=== PATIENT | male | born 1955 | race Asian ===

== ENCOUNTER → 2017-09-04 | Outpatient (CLI) | payer OTHER | END | disposition home or self-care (01) | LOC: SHCH 10:25 | PROVIDERS: ATTEND Internal Medicine Cardiovascular Disease | DX: R00.2 Palpitations (principal) | CPT/HCPCS: 93306 ==

== ENCOUNTER 2018-01-12 22:41 | Observation (INO) | payer OTHER ==
[~2018-01-12] VITALS: Ht 172.7 cm; Wt 74.3 kg
[2018-01-12] MEDS ORDERED: NITROGLYCERIN 1GM/1 INCH PACKET TD ONE (22:49)
[2018-01-12] MEDS ORDERED: ASPIRIN 325 MG TABLET ONE (22:52)
[2018-01-12 23:18] LABS: BASOPHILS % (AUTO) 0.8 % (0.0-5.0); EOSINOPHILS % (AUTO) 5.6 % (0.0-8.0); MEAN CORPUSCULAR HEMOGLOBIN 33.9 pg (27.0-33.0); MEAN CORPUSCULAR HGB CONC 34.8 g/dL (32.0-36.0); MEAN CORPUSCULAR VOLUME 97.5 fL (79-99); MONOCYTES % (AUTO) 9.6 % (3.0-13.0); PLATELET COUNT (AUTO) 207 K/uL (130-400); RED BLOOD CELL COUNT(AUTO) 4.31 MIL/uL (4.50-6.20); WHITE BLOOD COUNT (AUTO) 8.6 K/uL (4.8-10.8)
[2018-01-12 23:29] LABS: CREATININE 0.9 mg/dL (0.5-1.5); POTASSIUM 3.2 mmol/L (3.5-5.1)
[2018-01-12 23:36] LABS: INR 1.01 (0.85-1.15); PARTIAL THROMBOPLASTIN TIME 26.8 SEC (26.3-35.5); PROTHROMBIN TIME 10.6 SEC (9.6-11.6)
[2018-01-12 23:43] LABS: ALBUMIN 3.5 g/dL (3.5-5.0); BILIRUBIN,TOTAL 0.4 mg/dL (0.2-1.0); TOTAL PROTEIN, SERUM 7.1 g/dL (6.0-8.3)
[2018-01-13] MEDS ORDERED: ONDANSETRON HCL MDV 20ML 2 MG/ML VIAL IV PRN (03:30)
[2018-01-13] MEDS ORDERED: MORPHINE SULFATE 2 MG/ML 1ML SYG IV PRN (03:30)
[2018-01-13] MEDS ORDERED: NITROGLYCERIN 1GM/1 INCH PACKET TD SCH ×2 (03:30→07:01)
[2018-01-13] MEDS ORDERED: ACETAMINOPHEN 325 MG TAB PO PRN (03:30)
[2018-01-13 04:00] VITALS: BP 125/78
[2018-01-13] MEDS ORDERED: ACETAMINOPHEN 325 MG TAB ONE (04:50)
[2018-01-13 05:40] LABS: ALBUMIN 3.4 g/dL (3.5-5.0); BILIRUBIN,TOTAL 0.7 mg/dL (0.2-1.0); CREATININE 0.8 mg/dL (0.5-1.5); POTASSIUM 3.5 mmol/L (3.5-5.1); TOTAL PROTEIN, SERUM 6.7 g/dL (6.0-8.3)
[2018-01-13] MEDS ORDERED: METO-408 PO (06:55)
[2018-01-13 07:10] VITALS: BP 127/77
[2018-01-13] MEDS ORDERED: PNEUMOCOCCAL VACCINE POLYVALENT 0.5 ML/VIAL [PPV] IM SCH (07:15)
[2018-01-13] MEDS ORDERED: ASPIRIN 325 MG TABLET PO SCH (09:00)
[2018-01-13] MEDS ORDERED: METOPROLOL TARTRATE 25 MG TAB PO SCH (09:00)
[2018-01-13] MEDS ORDERED: ATORVASTATIN CALCIUM 20 MG TABLET PO SCH (09:00)
[2018-01-13] MEDS ORDERED: FAMOTIDINE/PF 20 MG/2 ML VIAL IV SCH (09:00)
[2018-01-13 11:32] VITALS: BP 122/77
[2018-01-13] MEDS ORDERED: PNEUMOCOCCAL VACCINE POLYVALENT 0.5 ML/VIAL [PPV] IM ONE (12:00)
== END 2018-01-13 12:20 | disposition home or self-care (01) ==
LOC: EDH 22:41 → EDHIP 01-13 03:20 → 2DH 01-13 03:27
PROVIDERS: ADMIT Hospitalist; ATTEND Hospitalist
DX: I25.110 Atherosclerotic heart disease of native coronary artery with unstable angina pectoris (principal); I10 Essential (primary) hypertension; I24.9 Acute ischemic heart disease, unspecified; I48.0 Paroxysmal atrial fibrillation; K21.9 Gastro-esophageal reflux disease without esophagitis; Z79.899 Other long term (current) drug therapy; Z83.3 Family history of diabetes mellitus; Z87.891 Personal history of nicotine dependence; Z23 Encounter for immunization
CPT/HCPCS: 36415 ×2; 71045; 80053 ×2; 82550; 83874; 84484 ×3; 85025; 85610; 85730; 90471; 90732; 93005 ×2; 96374; 96375; 99285; A4600; G0378 ×9; J3490

== ENCOUNTER → 2019-07-22 | Outpatient (CLI) | payer SELFPAY ==
[~2019-07-22] MED LIST: METO-408 PO
== END | disposition home or self-care (01) ==
LOC: RAH 10:07
PROVIDERS: ATTEND Physical Medicine & Rehabilitation
DX: M47.22 Other spondylosis with radiculopathy, cervical region (principal)
CPT/HCPCS: 72141

== ENCOUNTER → 2019-10-02 | Outpatient (CLI) | payer OTHER, SELFPAY | END | disposition home or self-care (01) | LOC: RAH 13:06 | PROVIDERS: ATTEND Physical Medicine & Rehabilitation | DX: M19.012 Primary osteoarthritis, left shoulder (principal); M75.42 Impingement syndrome of left shoulder | CPT/HCPCS: 73221 ==

== ENCOUNTER 2020-08-23 08:40 | Day surgery (SDC) | payer OTHER ==
[~2020-08-23] VITALS: Ht 170.2 cm; Wt 72.1 kg
[2020-08-23 09:46] VITALS: BP 140/97
[2020-08-23] MEDS ORDERED: SODIUM CHLORIDE 0.9% 1000ML 1,000 ML IV ONE (10:01)
[2020-08-23] MEDS ORDERED: PROPOFOL 10 MG/ML 20ML VIAL IV ONE (10:05)
[2020-08-23 10:30] VITALS: BP 130/83
[2020-08-23 10:35] VITALS: BP 110/82
[2020-08-23 10:40] VITALS: BP 108/84
[2020-08-23 10:45] VITALS: BP 114/90
[2020-08-23 10:50] VITALS: BP 116/82
== END 2020-08-23 11:05 | disposition home or self-care (01) ==
LOC: DAH 08:40 → ENDO 08:40
PROVIDERS: ATTEND Internal Medicine Gastroenterology
DX: Z12.11 Encounter for screening for malignant neoplasm of colon (principal); K63.5 Polyp of colon; K57.30 Diverticulosis of large intestine without perforation or abscess without bleeding; K64.8 Other hemorrhoids; R10.13 Epigastric pain; I10 Essential (primary) hypertension; I48.91 Unspecified atrial fibrillation; K21.9 Gastro-esophageal reflux disease without esophagitis; K31.89 Other diseases of stomach and duodenum; Z86.010 Personal history of colon polyps; Z79.899 Other long term (current) drug therapy
CPT/HCPCS: 43239; 45380; 87635; A4215 ×2; A4221; A4222; A4223; A4606; A4620; A4657; A4663; C9803; J2704; J7030

== ENCOUNTER → 2021-05-01 | Outpatient (CLI) | payer OTHER | END | disposition home or self-care (01) | LOC: RAH 13:10 | PROVIDERS: ATTEND Internal Medicine | DX: R22.1 Localized swelling, mass and lump, neck (principal) | CPT/HCPCS: 75571; 76536 ==

== ENCOUNTER 2021-09-16 12:16 | Inpatient (IN) | payer OTHER ==
[~2021-09-16] VITALS: Ht 170.2 cm; Wt 70.1 kg
[2021-09-16 12:30] LABS: BASOPHILS % (AUTO) 0.5 % (0.0-5.0); EOSINOPHILS % (AUTO) 4.8 % (0.0-8.0); HEMATOCRIT 46.8 % (42-54); LYMPHOCYTES % (AUTO) 44.2 % (21.0-51.0); MEAN CORPUSCULAR HEMOGLOBIN 32.5 pg (27.0-33.0); MEAN CORPUSCULAR HGB CONC 34.6 g/dL (32.0-36.0); MEAN CORPUSCULAR VOLUME 93.8 fL (79-99); MONOCYTES % (AUTO) 8.3 % (3.0-13.0); NEUTROPHILS % (AUTO) 41.8 % (40.0-77.0); PLATELET COUNT (AUTO) 222 K/uL (130-400); RED BLOOD CELL COUNT(AUTO) 4.99 MIL/uL (4.50-6.20); RED CELL DISTRIBUTION WIDTH 13.2 % (11.0-15.5); WHITE BLOOD COUNT (AUTO) 10.7 K/uL (4.8-10.8)
[2021-09-16 12:52] LABS: POTASSIUM 3.5 mmol/L (3.5-5.1)
[2021-09-16 12:57] LABS: ALBUMIN 4.1 g/dL (3.5-5.0); BILIRUBIN,TOTAL 0.9 mg/dL (0.2-1.0); TOTAL PROTEIN, SERUM 7.9 g/dL (6.0-8.3)
[2021-09-16] MEDS ORDERED: ASPIRIN 81MG CHEW TAB PO ONE (13:30)
[2021-09-16 14:01] LABS: APPEARANCE,URINE SL CLOUDY (CLEAR); BILIRUBIN,URINE NEGATIVE (NEGATIVE); COLOR,URINE AMBER (YELLOW); GLUCOSE, URINE (UA) NEGATIVE (NEGATIVE); KETONES,URINE NEGATIVE (NEGATIVE); LEUKOCYTE ESTERASE ,URINE NEGATIVE (NEGATIVE); NITRATE,URINE NEGATIVE (NEGATIVE); OCCULT BLOOD,URINE NEGATIVE (NEGATIVE); PROTEIN,URINE NEGATIVE (NEGATIVE); UROBILINOGEN,URINE 0.2 mg/dL (0.2-1.0)
[2021-09-16 14:08] LABS: BACTERIA,URINE None Seen /HPF (None Seen); CALCIUM OXALATE CRYSTALS,UR Many /LPF (None Seen); MUCUS,URINE Many LPF (None Seen); RBC,URINE None Seen /HPF (0-1); SQUAMOUS EPITHELIAL CELL,UR 0-2 /HPF (0-2); WBC,URINE None Seen /HPF (0-1)
[2021-09-16] MEDS ORDERED: ASPIRIN 81MG CHEW TAB ONE (14:52)
[2021-09-16 15:16] LABS: HEMOGLOBIN A1C 6.2 % (4.0-6.0)
[2021-09-16] MEDS ORDERED: LABETALOL 20MG VIAL IV PRN (15:30)
[2021-09-16] MEDS ORDERED: METO25TA3 PO (16:00)
[2021-09-16] MEDS ORDERED: METO50TA9 PO (16:00)
[2021-09-16 18:22] VITALS: BP 155/99
[2021-09-16 19:43] VITALS: BP 134/88
[2021-09-16] MEDS: PROPAFENONE HCL 150 MG TABLET PO SCH (20:22)
[2021-09-16] MEDS: RIVAROXABAN 20 MG TABLET PO SCH (20:23)
[2021-09-16] MEDS: METOPROLOL SUCCINATE 25 MG TAB.SR.24H PO SCH (20:23)
[2021-09-17] VITALS (7 sets, daily range): BP systolic 116–140; BP diastolic 71–97
[2021-09-17] MEDS: PROPAFENONE HCL 150 MG TABLET PO SCH ×3 (03:36→20:21)
[2021-09-17 04:58] LABS: CHOLESTEROL 158 mg/dL (<200); HDL CHOLESTEROL 52 mg/dL (29-71); LDL DIRECT 88 mg/dL (0-99); TRIGLYCERIDES 83 mg/dL (30-200)
[2021-09-17 06:47] LABS: BASOPHILS % (AUTO) 0.8 % (0.0-5.0); EOSINOPHILS % (AUTO) 5.5 % (0.0-8.0); LYMPHOCYTES % (AUTO) 35.1 % (21.0-51.0); MEAN CORPUSCULAR HEMOGLOBIN 32.5 pg (27.0-33.0); MEAN CORPUSCULAR HGB CONC 34.4 g/dL (32.0-36.0); MEAN CORPUSCULAR VOLUME 94.3 fL (79-99); MONOCYTES % (AUTO) 7.9 % (3.0-13.0); NEUTROPHILS % (AUTO) 50.3 % (40.0-77.0); PLATELET COUNT (AUTO) 199 K/uL (130-400); RED BLOOD CELL COUNT(AUTO) 4.56 MIL/uL (4.50-6.20); RED CELL DISTRIBUTION WIDTH 13.3 % (11.0-15.5); WHITE BLOOD COUNT (AUTO) 7.6 K/uL (4.8-10.8)
[2021-09-17 06:49] LABS: CREATININE 0.8 mg/dL (0.5-1.5); POTASSIUM 3.8 mmol/L (3.5-5.1)
[2021-09-17] MEDS: RIVAROXABAN 20 MG TABLET PO SCH (08:47)
[2021-09-17] MEDS: ASPIRIN 81 MG EC TAB PO SCH (08:47)
[2021-09-17] MEDS: METOPROLOL SUCCINATE 50 MG TAB.SR.24H PO SCH ×2 (08:47→10:28)
[2021-09-17] MEDS: METOPROLOL SUCCINATE 25 MG TAB.SR.24H PO SCH (20:21)
[2021-09-18] MEDS: PROPAFENONE HCL 150 MG TABLET PO SCH ×3 (03:38→20:21)
[2021-09-18 03:54] VITALS: BP 130/41
[2021-09-18 04:12] LABS: BASOPHILS % (AUTO) 0.7 % (0.0-5.0); EOSINOPHILS % (AUTO) 5.6 % (0.0-8.0); HEMATOCRIT 43.3 % (42-54); LYMPHOCYTES % (AUTO) 38.7 % (21.0-51.0); MEAN CORPUSCULAR HEMOGLOBIN 32.5 pg (27.0-33.0); MEAN CORPUSCULAR HGB CONC 34.2 g/dL (32.0-36.0); MONOCYTES % (AUTO) 7.9 % (3.0-13.0); NEUTROPHILS % (AUTO) 46.7 % (40.0-77.0); PLATELET COUNT (AUTO) 181 K/uL (130-400); RED BLOOD CELL COUNT(AUTO) 4.56 MIL/uL (4.50-6.20); RED CELL DISTRIBUTION WIDTH 13.2 % (11.0-15.5); WHITE BLOOD COUNT (AUTO) 6.9 K/uL (4.8-10.8)
[2021-09-18 04:31] LABS: CREATININE 0.8 mg/dL (0.5-1.5)
[2021-09-18] MEDS ORDERED: REGADENOSON 0.4 MG/5 ML PF SYG IVP SCH (07:00)
[2021-09-18 08:52] VITALS: BP 142/96
[2021-09-18] MEDS: RIVAROXABAN 20 MG TABLET PO SCH (09:25)
[2021-09-18] MEDS: ASPIRIN 81 MG EC TAB PO SCH (09:25)
[2021-09-18] MEDS: METOPROLOL SUCCINATE 50 MG TAB.SR.24H PO SCH (09:25)
[2021-09-18] MEDS ORDERED: AEC81 PO (11:02)
[2021-09-18] MEDS ORDERED: PROP150T28 PO (11:02)
[2021-09-18] MEDS ORDERED: RIVA20TA PO (11:02)
[2021-09-18 12:22] VITALS: BP 135/83
[2021-09-18 16:30] VITALS: BP 131/80
[2021-09-18 19:10] VITALS: BP 144/99
[2021-09-18] MEDS: METOPROLOL SUCCINATE 25 MG TAB.SR.24H PO SCH (20:21)
[2021-09-18 23:07] VITALS: BP 125/78
[2021-09-19 03:49] VITALS: BP 134/93
[2021-09-19] MEDS: PROPAFENONE HCL 150 MG TABLET PO SCH ×2 (04:00→12:12)
[2021-09-19 08:34] VITALS: BP 137/98
[2021-09-19] MEDS: RIVAROXABAN 20 MG TABLET PO SCH (09:51)
[2021-09-19] MEDS: METOPROLOL SUCCINATE 50 MG TAB.SR.24H PO SCH (09:51)
[2021-09-19] MEDS: ASPIRIN 81 MG EC TAB PO SCH (09:51)
[2021-09-19 11:58] VITALS: BP 148/87
== END 2021-09-19 12:43 | disposition home or self-care (01) | DRG 69 ==
LOC: EDH 12:16 → EDHIP 14:46 → 2DH 17:22
PROVIDERS: ADMIT Internal Medicine; ATTEND Internal Medicine
PROC: 4A02XM4 Measurement of Cardiac Total Activity, External Approach (ICD-10-PCS; principal; 2021-09-18)
PROC: 3E073KZ Introduction of Other Diagnostic Substance into Coronary Artery, Percutaneous Approach (ICD-10-PCS; 2021-09-18)
DX: G45.9 Transient cerebral ischemic attack, unspecified (principal); I21.A1 Myocardial infarction type 2; I48.0 Paroxysmal atrial fibrillation; I10 Essential (primary) hypertension; Z87.891 Personal history of nicotine dependence; Z83.3 Family history of diabetes mellitus; Z82.3 Family history of stroke; Z82.5 Family history of asthma and other chronic lower respiratory diseases
CPT/HCPCS: 36415; 70450; 70544; 70547; 70551; 78452; 80048; 80053; 80061; 81001; 82948; 83036; 83735; 84443; 84484; 85025; 92522; 92610; 93005; 93017; 93306; 93356; 93880; 96374; 97039; 99291; A9500; G0378; J2785

== ENCOUNTER 2021-10-17 23:07 | Emergency (ER) | payer OTHER ==
[~2021-10-17 23:07] MED LIST changes: +AEC81 PO; -METO-408 PO; +METO50TA9 PO; +PROP150T28 PO; +RIVA20TA PO
[2021-10-17 23:26] LABS: BASOPHILS % (AUTO) 1.3 % (0.0-5.0); EOSINOPHILS % (AUTO) 6.7 % (0.0-8.0); HEMATOCRIT 40.8 % (42-54); LYMPHOCYTES % (AUTO) 48.6 % (21.0-51.0); MEAN CORPUSCULAR HEMOGLOBIN 33.3 pg (27.0-33.0); MEAN CORPUSCULAR HGB CONC 35.5 g/dL (32.0-36.0); MEAN CORPUSCULAR VOLUME 93.6 fL (79-99); MONOCYTES % (AUTO) 9.2 % (3.0-13.0); NEUTROPHILS % (AUTO) 33.9 % (40.0-77.0); PLATELET COUNT (AUTO) 198 K/uL (130-400); RED BLOOD CELL COUNT(AUTO) 4.36 MIL/uL (4.50-6.20); RED CELL DISTRIBUTION WIDTH 12.8 % (11.0-15.5); WHITE BLOOD COUNT (AUTO) 6.4 K/uL (4.8-10.8)
[2021-10-17 23:38] LABS: CREATININE 0.9 mg/dL (0.5-1.5); POTASSIUM 3.6 mmol/L (3.5-5.1)
[2021-10-17 23:41] LABS: APPEARANCE,URINE CLEAR (CLEAR); BILIRUBIN,URINE NEGATIVE (NEGATIVE); COLOR,URINE YELLOW (YELLOW); GLUCOSE, URINE (UA) NEGATIVE (NEGATIVE); KETONES,URINE NEGATIVE (NEGATIVE); LEUKOCYTE ESTERASE ,URINE NEGATIVE (NEGATIVE); NITRATE,URINE NEGATIVE (NEGATIVE); OCCULT BLOOD,URINE NEGATIVE (NEGATIVE); PROTEIN,URINE NEGATIVE (NEGATIVE); UROBILINOGEN,URINE 0.2 mg/dL (0.2-1.0)
[2021-10-17 23:47] LABS: ALBUMIN 3.8 g/dL (3.5-5.0); MAGNESIUM 1.9 mg/dL (1.80-2.40); TOTAL PROTEIN, SERUM 7.5 g/dL (6.0-8.3)
[2021-10-17 23:55] LABS: B-TYPE NATRIURETIC PEPTIDE 21 pg/mL (0-100)
[2021-10-17 23:58] LABS: INR 1.06 (0.85-1.15); PROTHROMBIN TIME 11.5 SEC (9.6-11.6)
[2021-10-17 23:59] LABS: PARTIAL THROMBOPLASTIN TIME 28.4 SEC (26.3-35.5)
[2021-10-18] MEDS ORDERED: ASPIRIN 81MG CHEW TAB PO ONE
[2021-10-18] MEDS ORDERED: MAG/ALUM/SIMETH 30 ML UDCUP PO ONE (00:30)
[2021-10-18] MEDS ORDERED: LIDOCAINE HCL 2% VISCOUS 15 ML UDCUP PO ONE (00:30)
[2021-10-18 02:52] VITALS: BP 111/81
== END 2021-10-18 02:57 | disposition home or self-care (01) ==
LOC: EDH 23:07
DX: R07.89 Other chest pain (principal); R11.0 Nausea; I10 Essential (primary) hypertension; I48.91 Unspecified atrial fibrillation; Z79.82 Long term (current) use of aspirin; Z79.899 Other long term (current) drug therapy
CPT/HCPCS: 36415; 71045; 80053; 81003; 83735; 83880; 84484; 85025; 85610; 85730; 93005

== ENCOUNTER → 2021-12-04 | Outpatient (CLI) | payer OTHER ==
[2021-12-04 09:48] LABS: CREATININE 0.7 mg/dL (0.5-1.5)
== END | disposition home or self-care (01) ==
LOC: LAB 09:03
PROVIDERS: ATTEND Internal Medicine Cardiovascular Disease
DX: I48.0 Paroxysmal atrial fibrillation (principal)
CPT/HCPCS: 36415; 82565; 84520

== ENCOUNTER → 2021-12-26 | Outpatient (CLI) | payer OTHER ==
[~2021-12-26] MED LIST changes: +ATROPINE 1MG SYG IVP ONE; +CARAL PO; +COLC0.6C PO; +FENTANYL CITRATE PF 50 MCG/1 ML 2ML VIAL ONE; +HEPARIN 10,000 UNIT/10ML (1,000 UNIT/ML) VIAL ONE; +IOHEXOL 350 MG/ML 100ML INFUS..BTL IV ONE; +LIDOCAINE HCL 1% 20 ML VIAL ONE; +LIDOCAINE PF 100MG/5ML (2%) SYRINGE 5ML ONE; +MIDAZOLAM HCL 1 MG/ML 2ML VIAL ONE; +NEOSTIGMINE 5MG/5ML SYR IV ONE; +PANT40TA55 PO; +PHENYLEPHRINE HCL 10 MG/ML 1ML VIAL IV ONE; +PROP325C5 PO; +PROPOFOL 10 MG/ML 20ML VIAL IV ONE; +ROCURONIUM BROMIDE 10MG/1ML 5ML VL ONE
== END | disposition home or self-care (01) ==
LOC: RAH 08:09
PROVIDERS: ATTEND Internal Medicine Cardiovascular Disease
DX: I48.0 Paroxysmal atrial fibrillation (principal)
CPT/HCPCS: 71275; Q9967

== ENCOUNTER 2021-12-28 05:44 | Observation (INO) | payer OTHER ==
[2021-12-26 10:36] LABS: BASOPHILS % (AUTO) 1.2 % (0.0-5.0); LYMPHOCYTES % (AUTO) 44.7 % (21.0-51.0); MEAN CORPUSCULAR HEMOGLOBIN 33.1 pg (27.0-33.0); MEAN CORPUSCULAR HGB CONC 34.3 g/dL (32.0-36.0); MEAN CORPUSCULAR VOLUME 96.2 fL (79-99); MONOCYTES % (AUTO) 9.6 % (3.0-13.0); NEUTROPHILS % (AUTO) 38.3 % (40.0-77.0); PLATELET COUNT (AUTO) 189 K/uL (130-400); RED BLOOD CELL COUNT(AUTO) 4.78 MIL/uL (4.50-6.20); RED CELL DISTRIBUTION WIDTH 12.3 % (11.0-15.5)
[2021-12-26 10:44] LABS: INR 1.25 (0.85-1.15); PROTHROMBIN TIME 13.5 SEC (9.6-11.6)
[2021-12-26 10:46] LABS: PARTIAL THROMBOPLASTIN TIME 36.7 SEC (26.3-35.5)
[2021-12-26 10:48] LABS: CREATININE 0.7 mg/dL (0.5-1.5); POTASSIUM 3.6 mmol/L (3.5-5.1)
[2021-12-28] VITALS (18 sets, daily range): BP systolic 121–155; BP diastolic 80–94
[~2021-12-28 05:44] MED LIST changes: -AEC81 PO; -ATROPINE 1MG SYG IVP ONE; -CARAL PO; -COLC0.6C PO; -FENTANYL CITRATE PF 50 MCG/1 ML 2ML VIAL ONE; -HEPARIN 10,000 UNIT/10ML (1,000 UNIT/ML) VIAL ONE; -IOHEXOL 350 MG/ML 100ML INFUS..BTL IV ONE; -LIDOCAINE HCL 1% 20 ML VIAL ONE; -LIDOCAINE PF 100MG/5ML (2%) SYRINGE 5ML ONE; -METO50TA9 PO; -MIDAZOLAM HCL 1 MG/ML 2ML VIAL ONE; -NEOSTIGMINE 5MG/5ML SYR IV ONE; -PANT40TA55 PO; -PHENYLEPHRINE HCL 10 MG/ML 1ML VIAL IV ONE; -PROP150T28 PO; -PROPOFOL 10 MG/ML 20ML VIAL IV ONE; -ROCURONIUM BROMIDE 10MG/1ML 5ML VL ONE
[2021-12-28] MEDS ORDERED: 0.9%NACL 1000ML 1,000 ML IV ONE (06:17)
[2021-12-28] MEDS ORDERED: HEPARIN 10,000 UNIT/10ML (1,000 UNIT/ML) VIAL IV ONE (08:33)
[2021-12-28] MEDS ORDERED: LIDOCAINE HCL 1% 20 ML VIAL MISC ONE (08:33)
[2021-12-28] MEDS ORDERED: PROPOFOL 10 MG/ML 20ML VIAL IV ONE (08:52)
[2021-12-28] MEDS ORDERED: MIDAZOLAM HCL 1 MG/ML 2ML VIAL IVPB ONE (08:52)
[2021-12-28] MEDS ORDERED: FENTANYL CITRATE PF 50 MCG/1 ML 2ML VIAL IJ ONE (08:53)
[2021-12-28] MEDS ORDERED: LIDOCAINE PF 100MG/5ML (2%) SYRINGE 5ML IVP ONE (08:54)
[2021-12-28] MEDS ORDERED: ROCURONIUM 10MG/1ML SYR 10 MG/ML ML IV ONE (08:55)
[2021-12-28] MEDS ORDERED: PHENYLEPHRINE HCL 10 MG/ML 1ML VIAL IV ONE (08:56)
[2021-12-28] MEDS ORDERED: NEOSTIGMINE 5MG/5ML SYR IV ONE (08:58)
[2021-12-28] MEDS ORDERED: ATROPINE 1MG SYG IVP ONE (08:59)
[2021-12-28] MEDS ORDERED: ROCURONIUM BROMIDE 10MG/1ML 5ML VL ONE (09:57)
[2021-12-28] MEDS ORDERED: HEPARIN 10,000 UNIT/10ML (1,000 UNIT/ML) VIAL ONE ×2 (10:12→12:13)
[2021-12-28] MEDS ORDERED: ROCURONIUM 10MG/1ML SYR 10 MG/ML ML ONE (12:07)
[2021-12-28] MEDS ORDERED: ISOPROTERENOL HCL 0.2 MG/ML AMP/VIAL/BAG ONE (13:53)
[2021-12-28] MEDS ORDERED: SUGAMMADEX SODIUM 200 MG/2 ML VIAL IV ONE (13:55)
[2021-12-28] MEDS ORDERED: PROTAMINE SULFATE 10 MG/ML 25ML VIAL IV ONE (14:09)
[2021-12-28] MEDS ORDERED: MEPERIDINE-PF 25 MG/ML SYG ONE ×2 (15:17→15:28)
[2021-12-28] MEDS ORDERED: PANTOPRAZOLE 40 MG TAB DR PO SCH (15:30)
[2021-12-28] MEDS ORDERED: ACETAMINOPHEN 325 MG TAB PO PRN (15:30)
[2021-12-28] MEDS ORDERED: ACETAMINOPHEN WITH CODEINE 1 TAB TAB PO PRN (15:30)
[2021-12-28] MEDS: SUCRALFATE 1 GM TABLET PO SCH ×2 (16:31→21:39)
[2021-12-28] MEDS ORDERED: APIXABAN 5 MG TABLET PO ONE (21:00)
[2021-12-29 00:06] VITALS: BP 121/78
[2021-12-29] MEDS: SUCRALFATE 1 GM TABLET PO SCH ×2 (03:37→09:16)
[2021-12-29 04:09] VITALS: BP 124/82
[2021-12-29 08:00] VITALS: BP 151/86
[2021-12-29] MEDS ORDERED: RIVAROXABAN 20 MG TABLET PO SCH (08:00)
[2021-12-29] MEDS ORDERED: PANTOPRAZOLE 40 MG TAB DR PO SCH (09:00)
[2021-12-29] MEDS ORDERED: PANT40TA55 PO (10:26)
[2021-12-29] MEDS ORDERED: CARAL PO (10:26)
[2021-12-29] MEDS ORDERED: COLC0.6C PO (10:39)
== END 2021-12-29 11:35 | disposition home or self-care (01) ==
LOC: DAH 05:44 → DAHIP 05:45 → 2AH 16:18
PROVIDERS: ADMIT Internal Medicine Cardiovascular Disease; ATTEND Internal Medicine Cardiovascular Disease
DX: I48.0 Paroxysmal atrial fibrillation (principal); I10 Essential (primary) hypertension; I87.2 Venous insufficiency (chronic) (peripheral); Z79.899 Other long term (current) drug therapy; Z98.890 Other specified postprocedural states
CPT/HCPCS: 80048; 85025; 85610; 85730; 36415; 93005 ×2; 93622; 93623; 93656; 93657; A4344; C1894 ×5; C1893; A4215 ×2; C1731; A4649 ×2; C1732; C1730; G0378 ×21; J3010; J2710; J7030; J3490 ×2; J2720; J2001; J0461; J1644 ×6; J2250; J2704; J2175 ×2; J2370; A4223 ×3; A4222; A4221; A4663; A4216; A4606

== ENCOUNTER → 2024-01-15 | Outpatient (CLI) | payer BC ==
[~2024-01-15] MED LIST changes: +CARAL PO; +COLC0.6C PO; +PANT40TA55 PO; -PROP325C5 PO
--- NOTE | 2024-01-15 14:32 | HMCIMG ---
US SOFT TISSUE NECK REASON: LOCALIZED SWELLING. COMPARISON: None TECHNIQUE: Soft tissue neck ultrasound study was performed. FINDINGS: Over the region of interest in the left neck area, findings suggestive of lipoma is seen measuring 5 x 1 x 4 cm. IMPRESSION: Findings as described above.
== END | disposition home or self-care (01) ==
LOC: RAH 12:41
PROVIDERS: ATTEND Internal Medicine
DX: R22.1 Localized swelling, mass and lump, neck (principal); D17.9 Benign lipomatous neoplasm, unspecified
CPT/HCPCS: 76536